=== PATIENT | female | born 1995 | race African-American/Black ===

== ENCOUNTER 2024-01-29 12:49 | Emergency (ER) | payer SELFPAY ==
--- OUTSIDE RECORDS SUMMARY | 2024-01-29 12:52 | XMS REPORT | Continuity of Care Document ---
Author Name Unknown Address [address] [facility] [address] [place] [address] [facility] thconnect Address [address] [facility] [address] [place] [address] Care Team Providers Care Executive Producer Promos Name Role Phone Michell Lange Primary Care Physician [phone] Roya Harrison Attending Clinician Unavailable FELISA LUTZ Attending Clinician Unavailable FELISA LUTZ Attending Clinician Unavailable Felisa Lutz MD Attending Clinician [phone] Michell Lange Attending Clinician [phone] MICHELL AKINS Attending Clinician Unavailable Doctor Unassigned, [place] Attending Clinician U navailable Roya Harrison Admitting Clinician Unavailable Payers Payer Name Policy Type Policy Number Effective Date Expirati on Date Source Problems Condition Name Condition Details Condition Category Status Onset Date Resolution Date Last Treatment Date Treating Clinician Comments Source No known active problems No known active problems Disease [facility] Allergies, Adverse Reactions, Alerts Allergy Name Allergy Type Status Severity Reaction(s) Onset Date Inactive Date Treating Clinician Comments Source No Known Allergie s DA Active U 09-10 00:00: 00 [facility] No Known Allergie s DA Active U 09-10 00:00: 00 [facility] NO KNOWN ALLERGIE S Drug Class Active [facility] Social History Social Habit Start Date Stop Date Quantity Comments Source ASSERTION 2019-12-20 00:00:00 [facility] Exposure to SARS-CoV-2 (event) Not sure [facility] Alcoholic beverage intake 2020-12-04 00:00:00 2020-12-04 00:00:00 Ex-drinker (finding) [facility] Alcohol Comment 2020-01-28 00:00:00 2020-01-28 00:00:00 not since , but socially before [facility] History of Social function 2020-01-28 00:00:00 2020-01-28 00:00:00 [facility] Tobacco use and exposure 2020-01-28 00:00:00 2020-01-28 00:00:00 Smokeless tobacco non-user [facility] Alcohol intake 2020-01-28 00:00:00 2020-01-28 00:00:00 Ex-drinker (finding) [facility] Sex assigned at 1995 00:00:00 1995 00:00:00 [facility] Smoking Status Start Date Stop Date Source Unknown if ever smoked [facility] Never smoked tobacco [facility] Medications Ordered Medication Name Filled Medication Name Start Date Stop Date Current Medication? Ordering Clinician Indication Dosage Frequency Signature (SIG) Comments Components Source proMETHazin e 12.5 mg tablet 2019-04 00:00: 00 Yes [id number] 12.5mg Take 1 tablet by mouth every 6 (six) hours as needed for Nausea and Vomiting (N/V) ( -) for up to 60 doses. [facility] Vital Signs Vital Name Observation Time Observation Value Comments S ource Body height 2020-01-28 19:07:00 180.3 cm [facility] Body weight 2020-01-28 19:07:00 82.373 kg [facility] BMI 2020-01-28 19:07:00 25.33 kg/m2 [facility] Systolic blood pressure 2020-01-28 19:07:00 116 mm[Hg] [place] [facility] Diastolic blood pressure 2020-01-28 19:07:00 75 mm[Hg] [facility] Heart rate 2020-01-28 19:07:00 81 /[facility] Body temperature 2020-01-28 19:07:00 37.17 Alexia [facility] Respiratory rate 2020-01-28 19:07:00 18 /min [facility] Procedures Procedure Date / Time Performed Performing Clinicia n Source [id number] 2020-09-10 00:00:00 [facility] [id number] 2020-09-10 00:00:00 [facility] [id number] 2020-09-10 00:00:00 [facility] [id number] 2020-09-10 00:00:00 [facility] GC & CHLAMYDIA AMPLIFIED ASSAY 2020-01-28 20:29:00 Michell Akins [facility] GLUCOSE 1 HOUR POST PRANDIAL 2020-01-28 20:15:00 Michell Akins [facility] CBC WITH DIFF 2020-01-28 20:15:00 [facility] S[facility] IGG 2020-01-28 20:15:00 Michell Akins [facility] HEPATITIS B SURFACE ANTIGEN 2020-01-28 20:15:00 Michell Akins [facility] HB ABO GROUPING 2020-01-28 20:15:00 [facility] HIV 1/2 AG-AB WITH REFLEX 2020-01-28 20:15:00 Michell Akins [facility] GALV ONLY - SYPHILIS IGG/IGM 2020-01-28 20:15:00 Michell Akins [facility] POCT TEST 2020-01-28 19:09:00 Michell Akins [facility] ASSIGNMENT OF BENEFITS 2020-01-28 18:35:23 Docto r Unassigned, [place] [facility] Encounters Start Date/Time End Date/Time Encounter Type Admission Type Attending Clinicians Care Facility Care Department Encounter ID Source 2020-09-09 11:09:32 Inpatient Roya Fracnisco [facility] [id number] [facility] 2024-01-15 00:00:00 2024-01-15 15:00:09 Telephone LutzCathleenen Heber [facility] [id number] [facility] 2020-09-10 01:12:00 2020-09-11 15:55:00 Inpatient Roya Duque [facility] OBPP [id number] [facility] 2020-02-20 00:00:00 2020-02-20 00:00:00 Telephone Michell Akins [facility] [id number] [facility] 2020-01-28 13:54:54 2020-01-28 15:24:36 Initial Visit Michell Akins [facility] [id number] [facility] 2020-01-28 13:30:00 2020-01-28 13:30:00 Outpatient R MICHELL AKINS [facility] [id number] [facility] 2020-01-28 00:00:00 2020-01-28 00:00:00 Orders Only Doctor Unassigned, [place] [facility] [id number] [facility] Results Test Description Test Time Test Comments Results Result Co mments Source AG HEPATITIS B [id number] 04:17:00* Test Item Value Reference Range Interpretation Comme nts AG HEPATITIS B SURFACE (test code = HBSAG) NONREACTIVE NONREACTIVE IS CONSENT FORM SIGNED FOR HIV TESTING? YAB HEPATITIS C [id number] 04:17:00* Test Item Value Reference Range Interpretation Comme nts AB HEPATITIS C (test code = HCVAB) NONREACTIVE NONREACTIVE SIGNAL TO CUTOFF (test code = CUTOFF) 0.04 <0.80 N IS CONSENT FORM SIGNED FOR HIV TESTING? YAB [id number] 04:17:00* Test Item Value Reference Range Interpretation Comme nts AB TREPONEMA (test code = TREPAB) NONREACTIVE NONREACTIVE IS CONSENT FORM SIGNED FOR HIV TESTING? YAB HIV 1 04:17:00* Test Item Value Reference Range Interpretation Comme nts AB HIV 1 2 (test code = OED90LK) NONREACTIVE NONREACTIVE Done by [employer] HIV Ag/Ab Combo Screen IS CONSENT FORM SIGNED FOR HIV TESTING? YAG HEPATITIS B [id number] 03:36:00* Test Item Value Reference Range Interpretation Comme nts AG HEPATITIS B SURFACE (test code = HBSAG) NONREACTIVE IS CONSENT FORM SIGNED FOR HIV TESTING? YAB HEPATITIS C [id number] 03:36:00* Test Item Value Reference Range Interpretation Comme nts AB HEPATITIS C (test code = HCVAB) NONREACTIVE NONREACTIVE SIGNAL TO CUTOFF (test code = CUTOFF) 0.04 <0.80 N IS CONSENT FORM SIGNED FOR HIV TESTING? RAMIROB [id number] 03:36:00* Test Item Value Reference Range Interpretation Comme nts AB TREPONEMA (test code = TREPAB) NONREACTIVE NONREACTIVE IS CONSENT FORM SIGNED FOR HIV TESTING? YAB HIV 1 03:36:00* Test Item Value Reference Range Interpretation Comme nts AB HIV 1 2 (test code = ZCW11HP) NONREACTIVE NONREACTIVE Done by [employer] HIV Ag/Ab Combo Screen IS CONSENT FORM SIGNED FOR HIV TESTING? YAG HEPATITIS B [id number] 03:05:00* Test Item Value Reference Range Interpretation Comme nts AG HEPATITIS B SURFACE (test code = HBSAG) NONREACTIVE IS CONSENT FORM SIGNED FOR HIV TESTING? YAB HEPATITIS C [id number] 03:05:00* Test Item Value Reference Range Interpretation Comme nts AB HEPATITIS C (test code = HCVAB) NONREACTIVE SIGNAL TO CUTOFF (test code = CUTOFF) <0.80 IS CONSENT FORM SIGNED FOR HIV TESTING? YAB [id number] 03:05:00* Test Item Value Reference Range Interpretation Comme nts AB TREPONEMA (test code = TREPAB) NONREACTIVE NONREACTIVE IS CONSENT FORM SIGNED FOR HIV TESTING? YAB HIV 1 03:05:00* Test Item Value Reference Range Interpretation Comme nts AB HIV 1 2 (test code = IAB15RN) NONREACTIVE IS CONSENT FORM SIGNED FOR HIV TESTING? YUR PROTEIN/CREATININE [id number] 02:44:00* Test Item Value Reference Range Interpretation Comme nts UR PROTEIN RANDOM (test code = PROTU) 30.4 mg/dL UR CREATININE RANDOM (test code = CREATU) 181.2 mg/dL PROTEIN/CREATININE RATIO (te st code = P/CRATIO) 167.7 mg/gcrea <200 URINALYSIS [id number] 02:36:00* Test Item Value Reference Range Interpretation Comme nts UA COLOR (test code = COLU) YELLOW YELLOW UA APPEARANCE (test code = APPU) Slightly-Cloudy CLEAR UA GLUCOSE DIPSTICK (test code = DGLUU) NEGATIVE NEG UA BILIRUBIN DIPSTICK (test code = BILU) NEGATIVE NEG UA KETONE DIPSTICK (test cod e = KETU) NEGATIVE NEG UA SPECIFIC GRAVITY (test code = SGU) 1.026 1.001-1.035 N UA BLOOD DIPSTICK (test code = SANDER) NEG NEG UA PH DIPSTICK (test code = JACKELIN) 6.0 5-9 UA PROTEIN DIPSTICK (test code = PROU) NEGATIVE NEG UA UROBILINIOGEN DIPSTICK (test code = URO) NEGATIVE mg/dL NEG UA NITRITE DIPSTICK (test code = FINN) NEG NEG UA LEUKOCYTE ESTERASE DIPSTICK (test code = LEUU) NEG NEG UA WBC (test code = WBCU) 0-2 #/hpf NONE SEEN UA RBC (test code = RBCU) 0-2 #/hpf NONE SEEN UA EPITHELIAL CELLS (test code = EPIU) FEW #/HPF RARE-FEW UA BACTERIA (test code = BACU) FEW /HPF RARE-FEW UA MUCUS (test code = MUCU) 1+ NONE SEEN URINE SAMPLE: CLEAN CATCHCOMPREHENSIVE METABOLIC [id number] 02:12:00* Test Item Value Reference Range Interpretation Comme nts SODIUM (test code = NA) 132 mEq/L 135-145 L POTASSIUM (test code = K) 4.1 mEq/L 3.5-5.0 N CHLORIDE (test code = CL) 99 mEq/L 100-115 L CARBON DIOXIDE (test code = CO2) 24 mEq/L 22-31 N ANION GAP (test code = GAP) 12.80 10-20 N GLUCOSE (test code = GLU) 94 mg/dL 65-110 N BLOOD UREA NITROGEN (test co de = BUN) 9 mg/dL 7-18 N GLOMERULAR FILTRATION RATE ( test code = GFR) 115 ml/min >60 N CREATININE (test code = CREAT) 0.7 mg/dL 0.5-1.0 N TOTAL PROTEIN (test code = PROT) 6.4 gm/dL 6.3-8.2 N ALBUMIN (test code = ALB) 2.9 gm/dL 3.4-4.8 L CALCIUM (test code = CA) 8.5 mg/dL 8.4-10.2 N BILIRUBIN TOTAL (test code = BILT) 0.2 mg/dL 0.2-1.0 N SGOT/AST (test code = AST) 21 units/L 15-37 N SGPT/ALT (test code = ALT) 16 units/L 12-78 N ALKALINE PHOSPHATASE TOTAL ( test code = ALKP) 133 units/L 46-116 H CBC W/AUTO [id number] 02:07:00* Test Item Value Reference Range Interpretation Comme nts WHITE BLOOD CELL (test code = WBC) 7.8 K/mm3 6.5-12.3 N RED BLOOD CELL (test code = RBC) 4.11 M/mm3 3.51-4.69 N HEMOGLOBIN (test code = HGB) 9.9 g/dL 10.1-13.8 L HEMATOCRIT (test code = HCT) 33.0 % 32.5-41.8 N MEAN CELL VOLUME (test code = MCV) 80.3 fL 84.6-96.6 L MEAN CELL HGB (test code = MCH) 24.1 pg 27.3-33.9 L MEAN CELL HGB CONCETRATION ( test code = MCHC) 30.0 gm/dL 32.0-34.2 L RED CELL DISTRIBUTION WIDTH (test code = RDW) 20.3 % 12.2-16.3 H PLATELET COUNT (test code = PLT) 156 K/mm3 134-363 N NEUTROPHIL % (test code = NT%) 65.1 % 57.9-77.3 N LYMPHOCYTE % (test code = LY%) 20.3 % 14.5-29.7 N MONOCYTE % (test code = MO%) 13.1 % 3.6-10.2 H EOSINOPHIL % (test code = EO%) 0.9 % 0.0-3.0 N BASOPHIL % (test code = BA%) 0.1 % 0.1-0.9 N NEUTROPHIL # (test code = NT#) 5.1 K/mm3 LYMPHOCYTE # (test code = LY#) 1.6 K/mm3 MONOCYTE # (test code = MO#) 1.0 K/mm3 EOSINOPHIL # (test code = EO#) 0.07 K/mm3 BASOPHIL # (test code = BA#) 0.0 K/mm3 RBC MORPHOLOGY REQUIRED (basil t code = RBCM) NORMAL NORMAL PLATELET MORPHOLOGY REQUIRED (test code = PLTMR) NORMAL NORMAL COVID 19 Asymptomatic IH [id number] 01:36:00* Test Item Value Reference Range Interpretation Comme nts COVID 19 Asymptomatic IH AG (test code = COVNONPUIAG) NEGATIVE NEGATIVE This test has be en authorized only for the detection ofproteins from SARS-CoV-2, not for any other viruses orpathogens. Negative results should be treated as presumptive andconfirmed with a molecular assay, if necessary for patientmanagement. Negative results do not rule out COVID-19 andshould not be used as the sole basis for treatment orpatient management decisions, including infection controldecisions. Negative results should be considered in thecontext of a patient's recent exposures, history and thepresence of clinical signs and symptoms consistent withCOVID-19. This test has not been FDA cleared or approved; the test hasbeen authorized by FDA under an Emergency Use Authorization(EUA) for use by laboratories certified under the CLIA thatmeet the requirements to perform moderate, high or waivedcomplexity tests. This test is authorized for use at thePoint of Care (POC), i.e., in patient care settingsoperating under a CLIA Certificate of Waiver, Certificate ofCompliance, or Certificate of Accreditation. This test is only authorized for the duration of thedeclaration that circumstances exist justifying theauthorization of emergency use of in vitro diagnostic testsfor detection and/or diagnosis of COVID-19 under Jsqqmfy435(b)(1) of the Act, 21 U.S.C. 360bbb-3(b)(1), unless theauthorization is terminated or revoked sooner. RUBELLA SCREEN (SEBASTIAN) [id number] 17:11:00* Test Item Value Reference Range Interpretation Comme nts Rubella screen IgG (test code = 7821230339) Positive Negative KYLE (test code = KYLE) Positive - Indicat es the patient was exposed to Rubella through infection or vaccination.Negative - Indicates the patient could be susceptible to Rubella infection.Equivocal - A second specimen should be sent. [facility] CHLAMYDIA AMPLIFIED [id number] 16:55:00* Test Item Value Reference Range Interpretation Comme nts C. trachomatis Nucleic Acid (test code = 64340-5) Negative Negative N. gonorrhoeae Nucleic Acid (test code = 22417-1) Negative Negative KYLE (test code = KYLE) Reliable results a re dependent on adequate specimen collection. ? A positive result obtained from a patient after therapeutic treatment cannot be interpreted as indicating the presence of viable organisms. ?For patients on whom a false positive result may have adverse psychosocial impact, retesting is advised. Indeterminate: Unable to generate a valid test result on this specimen. ?Please submit a new specimen for repeat testing if clinically indicated. Chlamydia trachomatis/Neisseria gonorrhoeae nucleic acid amplification testing (NAAT) has not been validated for medico-legal specimens (sexual abuse in filiberto-pubertal and pre-pubertal children, sexual assault, and legal cases). ?Culture for Chlamydia trachomatis and/or Neisseria gonorrhoeae from clinically appropriate sites is the method of choice in these cases. ? Results from this testing should be interpreted in conjunction with other laboratory and clinical data available to the clinician.For females in general, a urine specimen is a second-line option because it is considered less sensitive than a cervical swab for Chlamydia trachomatis and/or Neisseria gonorrhoeae NAAT. Lab Interpretation (test code = 73433-3) Normal [facility] - SYPHILIS [id number] 16:54:00* Test Item Value Reference Range Interpretation Comme nts Syphilis IgG/IgM (test code = 36437-7) Non-reactive Non-reactive KYLE (test code = KYLE) Non-reactive - No serologic evidence of T. pallidum infection. Cannot exclude incubating or early syphilis. Submit a second specimen in 2-4 weeks if syphilis is clinically suspected. Equivocal - Further testing to follow. Reactive - Further testing to follow. Lab Interpretation (test code = 51405-8) Normal [facility] AG-AB WITH [id number] 06:59:00* Test Item Value Reference Range Interpretation Comme nts HIV Semi-quantitative (test code = 93767-6) Negative Negative KYLE (test code = KYLE) Non-reactive for HIV-1 antigen and HIV-1/HIV-2 antibodies. ?No laboratory evidence of HIV infection. ?Repeat in 2-4 weeks if acute HIV infection is suspected. [facility] CenterPRENATAL WORKUP, BLOOD [id number] 04:49:55 * Test Item Value Reference Range Interpretation Comme nts ABO & RH (test code = 20) B POSITIVE Performed at [facility] Laboratory Services - [facility] Blood [address] Free: [phone] No. [id number] IAT (test code = 1185) Negative Performed at [facility] Laboratory Services [facility] Blood [address] Free: [phone] No. [id number] [facility] CenterHEPATITIS B SURFACE [id number] 04:49:00 * Test Item Value Reference Range Interpretation Comme nts HBsAg Semi-Quantitative (basil t code = 5195-3) Negative Negative [facility] CenterGlucose 1 Hour Post [id number] 04:15:00* Test Item Value Reference Range Interpretation Comme nts GLUC 1 HR (test code = 0738861376) 122 mg/dL 120-170 Lab Interpretation (test cod e = 22882-7) Normal [facility] WITH [id number] 03:42:00* Test Item Value Reference Range Interpretation Comme nts WBC (test code = 6690-2) See_Comment [Automated messa ge] The system which generated this result transmitted reference range: 4.30 - 11.10 10*3/?L. The reference range was not used to interpret this result as normal/abnormal. RBC (test code = 789-8) See_Comment [Automated Picasso[employer]coma ge] The system which generated this result transmitted reference range: 3.93 - 5.25 10*6/?L. The reference range was not used to interpret this result as normal/abnormal. HGB (test code = 718-7) 11.8 g/dL 11.6-15 HCT (test code = 4544-3) 38.2 % 35.7-45.2 MCV (test code = 787-2) 80.1 fL 80.6-95.5 L MCH (test code = 785-6) 24.7 pg 25.9-32.8 L MCHC (test code = 786-4) 30.9 g/dL 31.6-35.1 L RDW-SD (test code = 18478-9) 54.7 fL 39-49.9 H RDW-CV (test code = 788-0) 18.8 % 12-15.5 H PLT (test code = 777-3) See_Comment [Automated [employer]coma ge] The system which generated this result transmitted reference range: 166 - 358 10*3/?L. The reference range was not used to interpret this result as normal/abnormal. MPV (test code = 86388-5) 11.1 fL 9.5-12.9 NRBC/100 WBC (test code = 1463618229) See_Comment [Automated [employer] ssage] The system which generated this result transmitted reference range: 0.0 - 10.0 /100 WBCs. The reference range was not used to interpret this result as normal/abnormal. NRBC x10^3 (test code = 0606924396) <0.01 See_Comment [Automated [employer]coma ge] The system which generated this result transmitted reference range: 10*3/?L. The reference range was not used to interpret this result as normal/abnormal. GRAN MAT (NEUT) % (test code = 770-8) 69.1 % IMM GRAN % (test code = 7967918119) 0.10 % LYMPH % (test code = 736-9) 21.3 % MONO % (test code = 5905-5) 8.8 % EOS % (test code = 713-8) 0.6 % BASO % (test code = 706-2) 0.1 % GRAN MAT x10^3(ANC) (test code = 7393718076) 4.93 10*3/uL 1.88-7.09 IMM GRAN x10^3 (test code = 7748209410) <0.03 0-0.06 LYMPH x10^3 (test code = 731-0) 1.52 10*3/uL 1.32-3.29 MONO x10^3 (test code = 742-7) 0.63 10*3/uL 0.33-0.92 EOS x10^3 (test code = 711-2) 0.04 10*3/uL 0.03-0.39 BASO x10^3 (test code = 704-7) <0.03 0.01-0.07 Lab Interpretation (test code = 49181-0) Abnormal [facility] CenterPOCT [id number] 19:09:00* Test Item Value Reference Range Interpretation Comme nts POCT PREG (test code = 1605) Positive On board controls acceptable with C Line (test code = 3574) Yes POCT PREG LOT # (test code = 3575) POCT PREG TEST DATE ( test code = 3576) Lab Interpretation (test cod e = 59934-1) Normal [facility] Notes Date/Time Note Provider Source 2024-01-15 15:00:18 Noted Brittney Kincaid RN 01/15/2024 3:00 PM Brittney Kincaid RN [facility] - [facility] 2024-01-15 14:41:49 Disregard, pt cancelled the appt. LMP 11/28, positive home test, pt have not seen anyone for this , sent my chart activation code. Appt Jan 17/ MD Navin. Itzel Santos [facility] 2020-09-11 11:58:00 [facility] OB Disch REPORT#:[id number] REPORT STATUS: Signed DATE:09/11/20 TIME: 1158 PATIENT: TASNEEM HOPPER UNIT #: [id number] ROOM/BED: [address] : [birth year] AGE: 25 SEX: F ATTEND: Roya Harrison MD ADM AUTHOR: Roya Harrison MD * ALL edits or amendments must be made on the electronic/computer document * Discharge Summary General Problem List/A P: 1. Gestational hypertension Assessment: nml progress, acute blood loss anemia (, asx) Hospital course: induction of labor, spontaneous vag delivery, epidural anesthesia, nml postop/postpart care Discharge condition: stable Discharge to: Home/Self Care Discharge diagnosis: full-term uncomp delivery, perineal laceration (3rd degree) , gestational HTN, anemia (, acute blood loss) Baby A: Vaginal delivery: operative vag del vacuum status: live born Gender: male 1 minute: 8 5 minutes: 9 Plan: routine care, circumcision today, discharge today (anticipated) , start iron Vaginal packing at delivery: No Discharge Instructions Diet: Regular Activity: No [place] for 6 Wks Additional discharge routines: Attending Follow-Up Discharge meds: Stop taking the following medications: FERROUS SULFATE (FEOSOL) 325 MG TAB 325 MILLIGRAM ORAL DAILY. Continue taking these medications: PNV WITH FE FUMARATE/FA () 1 EACH TAB 1 TABLET ORAL DAILY. FERROUS SULFATE (FEOSOL) 325 MG TAB 1 TABLET ORAL TWICE DAILY. Qty = 60 DOCUSATE SODIUM (COLACE) 100 MG CAP 1 TABLET ORAL TWICE DAILY. as needed for CONSTIPATION Qty = 100 Start taking the following new medications: IBUPROFEN (MOTRIN) 800 MG TAB 800 MILLIGRAM ORAL THREE TIMES DAILY NEEDED. as needed for ABDOMINAL CRAMPS Qty = 60 Refills = 1 Prescriptions: e-prescribe Add'l Follow-up Appointments Attending Physician: Attending Physician: Roya Harrison MD Attending physician follow up timeframe: In 4-5 weeks at 1200 RPT #:[id number] END OF REPORT [facility] 2020-09-11 11:49:00 [facility] ([facility]) OB Postpart Progr Note REPORT#:[id number] REPORT STATUS: Signed DATE:09/11/20 TIME: 1149 PATIENT: TASNEEM HOPPER UNIT #: [id number] ROOM/BED: [address] : [birth year] AGE: 25 SEX: F ATTEND: Roya Harrison MD ADM AUTHOR: Roya Harrison MD * ALL edits or amendments must be made on the electronic/computer document * Subjective Subjective Status/Day: post (#1 s/p ) Patient reports: Patient reports: Yes no complaints, Yes normal lochia, Yes pain management effective, Yes tolerating po well, Yes voiding well Objective Nursing Documentation Review Nursing Data: The data set between the solid lines has been imported from nursing documentation. Any exceptions have been noted below under Provider comments. Feeding preference: Post hemorrhage risk score: Low Risk for Hemorrhage. Provider comments on imported nursing data: [] General VS: Vital Signs: Date Time Temp Pulse Resp B/P B/P Pulse O2 O2 Flow FiO2 Mean Ox Delivery Rate 09/11 0848 97.8 88 20 123/81 06/05 0011 98.8 100 18 126/79 06/04 1725 98.6 101 132/86 06/04 1639 99.0 06/04 1639 108 135/80 06/04 1608 93.0 06/04 1608 103 118/79 06/04 1554 101.0 06/04 1554 106 128/82 06/04 1524 88.0 06/04 1524 101 132/64 06/04 1509 91.0 06/04 1509 96 125/70 06/04 1453 103.0 06/04 1453 116 140/78 06/04 1446 97.0 06/04 1446 111 136/71 06/04 1439 100.0 06/04 1439 127 158/70 06/04 1424 83.0 06/04 1424 122 112/67 06/04 1409 96.0 06/04 1409 96 131/72 06/04 1353 94.0 06/04 1353 93 131/69 06/04 1338 96.0 06/04 1338 94 134/72 06/04 1324 100.0 06/04 1324 111 138/75 06/04 1309 93.0 06/04 1309 117 20 148/65 06/04 1239 102.0 06/04 1239 95 136/81 06/04 1225 91.0 06/04 1225 102 156/63 06/04 1209 107.0 06/04 1209 100 138/86 06/04 1153 75.0 06/04 1153 80 108/56 PATIENT WEIGHT: Weight (lb): 217 Weight (oz): Weight (kg): 98.43 Physical Exam Cardiac: normal sinus rhythm, no clinically sig murmur Lungs: clear to auscultation, no rales Neuro: Exam: alert, oriented x3 Abdomen: soft, no abnormal tenderness, no guarding Uterus: firm, involution appropriate, non-tender Fundus: firm Lower extremities: Edema: trace Result Findings/Data: Laboratory Tests: 09/11 814 Hematology Hgb (10.1 - 13.8 g/dL) 7.5 L Hct (32.5 - 41.8 %) 25.2 L Diagnosis, Assessment Plan Diagnosis, Assessment Plan Problem List/A P: 1. Gestational hypertension Assessment: nml progress, acute blood loss anemia (, asx) Plan: routine care, circumcision today, discharge today (anticipated) , start iron at 1151 RPT #:[id number] END OF REPORT [facility] 2020-09-10 14:33:00 [facility] ([facility]) OB Delivery Note REPORT#:[id number] REPORT STATUS: Signed DATE:09/10/20 TIME: 1433 PATIENT: TASNEEM HOPPER UNIT #: [id number] ROOM/BED: [address] : 96 AGE: 25 SEX: F ATTEND: Roya Harrison MD ADM AUTHOR: Roya Harrison MD * ALL edits or amendments must be made on the electronic/computer document * OB Delivery Pre-delivery GBS status: GBS status: negative Admission EGA: Weeks: 39 Days: 6 Baby A Information Baby A information Delivery date: 09/10/20 Delivery time: 1310 status: live born Wt of baby (lbs/oz): 8/9 Gender: male 1 minute: 8 5 minutes: 9 Presentation: vertex ABG details Baby A Cord blood gases: not collected Nuchal cord Baby A Nuchal cord: yes (tight,deliv.through), double Vaginal Delivery Vaginal delivery: Labor: spontaneous Vaginal delivery: operative vag del vacuum Amniotic fluid: clear Anesthesia type: epidural anesthesia Laceration repair: yes, 2-0 suture Placenta: spontaneous, expressed, intact Post delivery meds used: oxytocin Count: correct Vaginal packing: No Mother's condition: mother stable Infant's condition: stable in room Lacerations: Perineal laceration(s): 3rd Degree w/anal sphinct High vaginal laceration: yes (right vaginal sidewall) Extraction details OVD performed: yes OVD type: Vacuum asst vag delivery Indications: prolonged second stage, indications Pt counseling: indications discussed, risks discussed, questions answered, patient consent obtained Extraction assessment: cervix completely dilated, nursery anesth notified, mat-fet size appr for trace, bladder empty Degree of rotation: none station: outlet (5+) Position of head: OA total traction time (minutes): 10 # of pulls: 4 # of popoffs: 1 Vacuum type: Kiwi Vacuum detail: not > recommended range, always in recommend range, press. reduced betw UC's, adv. in station w/ea pull, appropriate cup placement, matern tiss excl from cup Extraction outcome: extraction successful Blood Loss/Details Blood loss at delivery: 975 mL at 1438 RPT #:[id number] END OF REPORT [facility] 2020-09-10 11:08:00 [facility] ([facility]) OB Admission / H P REPORT#:[id number] REPORT STATUS: Signed DATE:09/10/20 TIME: 1108 PATIENT: TASNEEM HOPPER UNIT #: [id number] ROOM/BED: [address] : 96 AGE: 25 SEX: F ATTEND: Roya Harrison MD ADM AUTHOR: Roya Harrison MD * ALL edits or amendments must be made on the electronic/computer document * OB History Chief complaint: uterine contractions, elevated blood pressure HPI: 25 yo G 2 P0 at 39 6/7 weeks IUP presents with c/o CTX. pt with elev BPs noted on arrival 140s/90s. no VB, no LOF +FM. no headaches, no visual changes, no N/V. PNC with Dr. Harrison c/b anemia Current : Admission EGA (weeks) 39 Admission EGA (days) 6 Conditions of : anemia Past History Allergies: Coded Allergies: No Known Allergies (09/10/20) Review of Systems All systems rev neg: except as marked Objective General VS: Last Documented: Result Date Time B/P Mean 91.0 09/10 1055 B/P 125/68 09/10 1055 Pulse 100 / 1055 Temp 98.4 09/10 0909 Resp 18 09/10 0909 Vital Signs Date Temp Pulse Resp B/P B/P Mean Pulse Ox FiO2 09/10 97.5-98.4 73-100 18 122-151/63-90 85.0-114.0 PATIENT WEIGHT: Weight (lb): 217 Weight (oz): Weight (kg): 98.43 Physical Exam HEENT: normocephalic w/o injury, pupils equal Cardiac: regular rate and rhythm, no clinically sig murmur Lungs: clear to auscultation Neuro: Exam: alert, oriented x3 DTR's (lower extr): normal 1-2+ Abdomen: gravid, soft, no abnormal tenderness Musculoskeletal: normal inspection, painless range of motion Pelvic exam: Pelvis clinically adequate: yes, inlet appears appropriate, pubic bone config appropr, no midpelvic contraction Cervical/ exam: Dilatation (cm): 0 - closed Effacement (%): 20 Est wt (gms): 3200 station: - 3 presentation: cephalic Membranes: Membranes: SROM Amniotic fluid: clear Lower extremities: Edema: 1+ pitting Baby A: Baby A FHR category: category 1 Result Findings/Data: Laboratory Tests: 09/10 09/10 0220 0137 Chemistry Sodium (135 - 145 mEq/L) 132 L Potassium (3.5 - 5.0 mEq/L) 4.1 Chloride (100 - 115 mEq/L) 99 L Carbon Dioxide (22 - 31 mEq/L) 24 Anion Gap (10 - 20) 12.80 BUN (7 - 18 mg/dL) 9 Creatinine (0.5 - 1.0 mg/dL) 0.7 Glomerular Filtr Rate (>60 ml/min) 115 Glucose (65 - 110 mg/dL) 94 Calcium (8.4 - 10.2 mg/dL) 8.5 Total Bilirubin (0.2 - 1.0 mg/dL) 0.2 AST (15 - 37 units/L) 21 ALT (12 - 78 units/L) 16 Total Alk Phosphatase (46 - 116 units/L) 133 H Total Protein (6.3 - 8.2 gm/dL) 6.4 Albumin (3.4 - 4.8 gm/dL) 2.9 L Hematology WBC (6.5 - 12.3 K/mm3) 7.8 RBC (3.51 - 4.69 M/mm3) 4.11 Hgb (10.1 - 13.8 g/dL) 9.9 L Hct (32.5 - 41.8 %) 33.0 MCV (84.6 - 96.6 fL) 80.3 L MCH (27.3 - 33.9 pg) 24.1 L MCHC (32.0 - 34.2 gm/dL) 30.0 L RDW (12.2 - 16.3 %) 20.3 H Plt Count (134 - 363 K/mm3) 156 Neut % (Auto) (57.9 - 77.3 %) 65.1 Lymph % (Auto) (14.5 - 29.7 %) 20.3 [place] % (Auto) (3.6 - 10.2 %) 13.1 H Eos % (Auto) (0.0 - 3.0 %) 0.9 Baso % (Auto) (0.1 - 0.9 %) 0.1 Neut # (Auto) (K/mm3) 5.1 Lymph # (Auto) (K/mm3) 1.6 [place] # (Auto) (K/mm3) 1.0 Eos # (Auto) (K/mm3) 0.07 Baso # (Auto) (K/mm3) 0.0 Serology Treponema pallidum Ab (NONREACTIVE) NONREACTIVE Hep Bs Antigen (NONREACTIVE) NONREACTIVE Hepatitis C Antibody (NONREACTIVE) NONREACTIVE Hep C Ab Signal/Cutoff (<0.80) 0.04 HIV 1 2 Antibody (NONREACTIVE) NONREACTIVE Urines Urine Color (YELLOW) YELLOW Urine Appearance (CLEAR) Slightly-Cloudy Urine pH (5 - 9) 6.0 Ur Specific [place] (1.001 - 1.035) 1.026 Urine Protein (NEG) NEGATIVE Urine Glucose (UA) (NEG) NEGATIVE Urine Ketones (NEG) NEGATIVE Urine Blood (NEG) NEG Urine Nitrite (NEG) NEG Urine Bilirubin (NEG) NEGATIVE Urine Urobilinogen (NEG mg/dL) NEGATIVE Ur Leukocyte Esterase (NEG) NEG Urine RBC (NONE SEEN #/hpf) 0-2 Urine WBC (NONE SEEN #/hpf) 0-2 Ur Epithelial Cells (RARE - FEW #/HPF) FEW Urine Bacteria (RARE - FEW /HPF) FEW Urine Mucus (NONE SEEN) 1+ 06/04 06/04 0113 0112 Serology SARS-CoV-2 Ag (Rapid) (NEGATIVE) NEGATIVE Urines Ur Random Creatinine (mg/dL) 181.2 U Random Total Protein (mg/dL) 30.4 Protein/Creatinin Ratio (<200 mg/gcrea) 167.7 Diagnosis, Assessment Plan Diagnosis, Assessment Plan Problem List/A P: 1. Gestational hypertension Free Text A P: labs normal except for slightly elev creatinine,monitor for s/sx of preeclampsia. magnesium sulfate prn for seizure prophylaxis Assessment/Impression: hypertension-gestational Plan: admit to inpatient, delivery, GBS neg at 1138 RPT #:[id number] END OF REPORT [facility]
--- NOTE | 2024-01-29 14:12 | RAD REPORT ---
EXAM: Transvaginal OB HISTORY: Abd cramping, ;Vaginal bleeding COMPARISON: None TECHNIQUE: Multiple grayscale and color Doppler images were obtained in a pelvic ultrasound. Spectra l analysis of the Doppler waveforms of the ovaries were performed. FINDINGS: UTERUS: There is an intrauterine gestational sac. This contains a yolk sac and pole. [place]-rump length: 0.9 cm which estimates gestational age at 7 weeks 3 day. A heart rate is detected at 129 bpm. Small subchorionic hemorrhage. A small amount of free fluid is seen in the pelvis. RIGHT OVARY: Normal flow without focal mass. LEFT OVARY: Normal flow without focal mass. IMPRESSION: Single live intrauterine with estimated age of 7 weeks 3 day. Small subchorioni c hemorrhage.
[2024-01-29 14:31] LABS: Absolute Lymphocytes (CBC) 1.6 K/uL (0.7-4.9); Absolute Monocytes 0.8 K/uL (0.1-1.3); Absolute Neutrophil 5.3 K/uL (1.8-8.0); Basophils % 0.4 % (0-1.3); Eosinophils % 0.5 % (0-4.4); Hematocrit 34.4 % (36.0-45.0); Hemoglobin 11.1 g/dL (12.0-15.0); Lymphocytes % 20.3 % (15.3-44.8); MCH 26.6 pg (27.0-35.0); MCHC 32.1 g/dL (32.0-36.0); MCV 82.9 fL (80-100); MPV 8.4 fL (7.6-11.3); Monocytes % 10.4 % (3.3-12.3); Neutrophils % 68.4 % (41.7-73.7); Platelets 246 thou/uL (152-406); RBC Red Blood Cell Count 4.15 M/uL (3.86-4.86); Red Cell Distribution Width 15.5 % (12.1-15.2)
[2024-01-29 15:07] LABS: Anion Gap 9.7 mEq/L (5.0-15.0); Potassium 3.7 mEq/L (3.5-5.1)
[2024-01-29 17:06] LABS: Specific Gravity 1.023 (1.005-1.030)
[2024-01-29 17:08] LABS: Specific Gravity 1.024 (1.005-1.030); Urine Bacteria <20 /HPF (<20); Urine Bilirubin NEGATIVE (Negative); Urine Blood 2+ (Negative); Urine Clarity Extremely Turbid (Clear); Urine Color Yellow (Yellow); Urine Crystals Unidentified Few /HPF (None Seen); Urine Culture Reflex Order REFLEXED; Urine Glucose NEGATIVE (Negative); Urine Ketones 2+ (Negative); Urine Microscopic Reflex YN ORDER UMIC; Urine Mucus 2+ /HPF (None Seen); Urine Nitrite NEGATIVE (Negative); Urine Protein TRACE (Negative); Urine Urobilinogen Normal (Normal); Urine WBC >50 /HPF (<5); Urine pH 6.5 (5.0-7.0)
--- NOTE | 2024-01-29 17:19 | ER ---
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 Coronavirus screen: At this time, the client does not indicate any symptoms associated with coronavirus-19. Ebola Screen: No symptoms or risks identified at this time. Initial Sepsis Screen: Does the patient meet any 2 criteria? No. Patient's initial sepsis screen is negative. Does the patient have a suspected source of infection? No. Patient's initial sepsis screen is negative. Risk Assessment: Do you want to hurt yourself or someone else? Patient reports no desire to harm self or others. Onset of symptoms was January 28, 2024. 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 - Infectious Disease History:: Denies. - Social history:: Smoking status: Patient denies any tobacco usage or history of. Screenin:23 [facility] ED Fall Risk Assessment (Adult) History of falling in the last 3 months, ap3 including since admission No falls in past 3 months (0 pts) Confusion or Disorientation No (0 pts) Intoxicated or Sedated No (0 pts) Impaired Gait No (0 pts) Mobility Assist Device Used No (0 pt) Altered Elimination No (0 pt) Score/Fall Risk Level 0 - 2 = Low Risk Oriented to surroundings, Maintained a safe environment, Educated pt \T\ family on fall prevention, incl call for assistance when getting out of bed, Assessed \T\ reinforced patient's understanding of fall precautions, Hourly rounding (assess needs \T\ fall precautionary measures) done, Used ambulatory aids as needed (educated on \T\ assisted with), Used gait belt as appropriate. Abuse screen: Denies threats or abuse. Nutritional screening: No deficits noted. Tuberculosis screening: No symptoms or risk factors identified. Assessment: 14:23 General: Appears in no apparent distress. Behavior is calm, cooperative, appropriate ap3 for age. Pain: Denies pain. Neuro: Level of Consciousness is awake, alert, obeys commands, Oriented to person, place, time, situation, Appropriate for age. Cardiovascular: Patient's skin is warm and dry. Respiratory: Airway is patent Respiratory effort is even, unlabored, Respiratory pattern is regular, symmetrical. : Reports vaginal bleeding that is. 15:21 Reassessment: Patient appears in no apparent distress at this time. Patient and/or jb4 family updated on plan of care and expected duration. Pain level reassessed. Patient is alert, oriented x 3, equal unlabored respirations, skin warm/dry/pink. 16:51 Reassessment: Patient appears in no apparent distress at this time. Patient and/or jb4 family updated on plan of care and expected duration. Pain level reassessed. Patient is alert, oriented x 3, equal unlabored respirations, skin warm/dry/pink. 17:37 Reassessment: Patient appears in no apparent distress at this time. Patient and/or jb4 family updated on plan of care and expected duration. Pain level reassessed. Patient is alert, oriented x 3, equal unlabored respirations, skin warm/dry/pink. Vital Signs: 13:00 BP 113 / 79; Pulse 104; Resp 16; Temp 97.9(TE); Pulse Ox 100% on R/A; Weight 74.84 kg; hb Height 5 ft. 11 in. ; Pain 10/10; 15:21 BP 108 / 74; Pulse 79; Resp 16; Pulse Ox 98% on R/A; jb4 17:37 BP 116 / 90; Pulse 84; Resp 16; Pulse Ox 100% ; jb4 13:00 Body Mass Index 23.01 (74.84 kg, 180.34 cm) hb 13:00 Pain Scale: Adult hb ED Course: 12:52 Patient arrived in ED. mg5 12:56 Annmarie Matamoros FNP-C is [facility]. kb 12:56 Kane Newman MD is Attending Physician. kb 13:02 Triage completed. hb 13:02 Arm band placed on. hb 14:03 US Transvaginal Ob In Process Unspecified. EDMS 14:23 Cassandra Pollock, RN is Primary Nurse. ap3 14:24 Patient has correct armband on for positive identification. Bed in low position. Call ap3 light in reach. Side rails up X 1. Pulse ox on. NIBP on. 14:24 Initial lab(s) drawn, by me, sent to lab. Inserted saline lock: 24 gauge in right hand, ap3 using aseptic technique. Blood collected. Flushed with 10 mL NS. 17:37 Provided Education on: discharge instructions.. jb4 17:37 No provider procedures requiring assistance completed. IV discontinued, intact, jb4 bleeding controlled, No redness/swelling at site. Pressure dressing applied. Administered Medications: 17:37 Drug: Macrobid PO 100 mg PO once; administer with food Route: PO; jb4 17:37 Follow up: Response: No adverse reaction; Marked relief of symptoms jb4 17:38 Follow up: Response: Medication administered at discharge. jb4 Medication: 17:37 VIS not applicable for this client. jb4 Outcome: 17:18 Discharge ordered by MD. kb 17:37 Discharged to home ambulatory, jb4 17:37 Condition: stable 17:37 Discharge instructions given to patient, Instructed on discharge instructions, follow up and referral plans. medication usage, Demonstrated understanding of instructions, follow-up care, wound care, Prescriptions given X 1, 17:38 Patient left the ED. jb4 Signatures: Dispatcher [employer] EDWV Annmarie Matamoros, GEOTHERMAL POWERPLANT MECHANIC-Heather MENDEZP-Calista Haro, RN RN Rohit Guerra RN RN jb4 Cassandra Pollock, RN RN [email or web address] Adalgisa Jenkins mg5
--- NOTE | 2024-01-29 17:19 | EDPHYS ---
Physician Documentation [facility] Name: Jose Del Toro Age: 28 yrs Sex: Female : 1995 Arrival Date: 01/29/2024 Time: 12:49 Bed 11 Private MD: ED Physician Kane Newman HPI: 01/28 12:58 This 28 yrs old Black Female presents to ER via Unassigned with complaints of Vaginal kb Bleeding. 12:58 Pt is a 28 year old female who presents for lower abd cramping that started last night kb and vaginal bleeding that started this morning. States bleeding resolved at this time. LMP 11/2023. A0. Cramping resolved at this time as well. . 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 - Infectious Disease History:: Denies. - Social history:: Smoking status: Patient denies any tobacco usage or history of. ROS: 12:58 Constitutional: As per HPI kb Exam: 12:58 Constitutional: This is a well developed, well nourished patient who is awake, alert, kb and in no acute distress. Head/Face: Normocephalic, atraumatic. ENT: Moist Mucous membranes Cardiovascular: Regular rate Respiratory: Respirations even and unlabored. No increased work of breathing. Talking in full sentences Abdomen/GI: Soft, non-tender. No distention Skin: Warm, dry with normal turgor. Normal color. MS/ Extremity: Pulses equal, no cyanosis. Neurovascular intact. Full, normal range of motion. Neuro: Awake and alert, GCS 15, oriented to person, place, time, and situation. Vital Signs: 13:00 BP 113 / 79; Pulse 104; Resp 16; Temp 97.9(TE); Pulse Ox 100% on R/A; Weight 74.84 kg; hb Height 5 ft. 11 in. ; Pain 10/10; 15:21 BP 108 / 74; Pulse 79; Resp 16; Pulse Ox 98% on R/A; jb4 17:37 BP 116 / 90; Pulse 84; Resp 16; Pulse Ox 100% ; jb4 13:00 Body Mass Index 23.01 (74.84 kg, 180.34 cm) hb 13:00 Pain Scale: Adult hb MDM: 12:56 Medical Screening Exam initiated kb 12:59 Data reviewed: vital signs, nurses notes. kb 17:16 Differential diagnosis: threatened Ab, nonspecific abdominal pain, urinary tract kb infection. Counseling: I had a detailed discussion with the patient and/or guardian regarding the historical points, exam findings, and any diagnostic results supporting the discharge/admit diagnosis, lab results, radiology results, the need for outpatient follow up, an OB/Gyne specialist, to return to the emergency department if symptoms worsen or persist or if there are any questions or concerns that arise at home. 01/28 12:59 Order name: Abo/rh Typing; Complete Time: 16:03 kb 01/28 12:59 Order name: Basic Metabolic Panel; Complete Time: 16:03 kb 01/28 12:59 Order name: CBC with Diff; Complete Time: 14:35 kb 01/28 12:59 Order name: Test, Urine; Complete Time: 17:15 kb 01/28 12:59 Order name: Quantitative Hcg; Complete Time: 16:03 kb 01/28 12:59 Order name: Urinalysis w/ reflexes; Complete Time: 17:15 kb 01/28 17:15 Order name: Urine Culture EDMS 01/28 12:59 Order name: US Transvaginal Ob; Complete Time: 14:18 kb 01/28 12:59 Order name: IV Saline Lock; Complete Time: 14:25 kb 01/28 12:59 Order name: Labs collected and sent; Complete Time: 14:25 kb 01/28 12:59 Order name: NPO; Complete Time: 14:25 kb 01/28 14:36 Order name: Labs - recollect needed: recollect abo\E\rh no charge; Complete Time: 15:17 bd Administered Medications: 17:37 Drug: Macrobid PO 100 mg PO once; administer with food Route: PO; jb4 17:37 Follow up: Response: No adverse reaction; Marked relief of symptoms jb4 17:38 Follow up: Response: Medication administered at discharge. jb4 Disposition: 19:58 Co-signature as Attending Physician, Kane Newman MD I reviewed the patient's care rn provided by the Advanced Practice Provider and agree with the diagnosis and treatment plan. Disposition Summary: 01/29/24 17:18 Discharge Ordered Notes: Location: Home kb Condition: Stable kb Diagnosis - Threatened kb - UTI/ Urinary tract infection, site not specified kb Followup: kb - With: Emergency Department - When: As needed - Reason: Worsening of condition Followup: kb - With: Private Physician - When: 2 - 3 days - Reason: Recheck today's complaints, Continuance of care, Re-evaluation by your physician Discharge Instructions: - Discharge Summary Sheet kb - Urinary Tract Infection, Adult, [id number] kb - Subchorionic Hematoma kb - Threatened Miscarriage, Clvr-se-Caxi kb - Vaginal Bleeding During , First Trimester, [id number] kb Forms: - Medication Reconciliation Form kb - Antibiotic Education kb - Prescription Opioid Use kb - Patient Portal Instructions kb - Leadership Thank You Letter kb Prescriptions: - Macrobid 100 mg Oral Capsule - take 1 capsule ORAL route every 12 hours for 10 days; 20 capsule; Refills: 0, kb Product Selection Permitted Signatures: Dispatcher [employer] EDAnnmarie Redmond, SEARCH MARKETING SPECIALIST-C SEARCH MARKETING SPECIALIST-Ckb Sammi Cueto Roman, MD MD rn Baxter, Heather, RN Rohit Rivera, RN RN jb4
[2024-01-29] MEDS ORDERED: NITROFURAN MACRO 100 MG CAP PO ONE (17:23)
[2024-01-29 20:41] VITALS: TEMP 97.9
[2024-01-29 20:53] VITALS: BP 116/90; O2SAT 100
== END 2024-01-29 17:38 | disposition home or self-care (01) ==
LOC: ER 12:49
DX: O20.0 Threatened abortion (principal); O23.41 Unspecified infection of urinary tract in pregnancy, first trimester; N39.0 Urinary tract infection, site not specified; Z3A.01 Less than 8 weeks gestation of pregnancy
CPT/HCPCS: 36415; 76817; 80048; 81001; 81025; 84702; 85025; 86900; 86901; 87077; 87086; 87088; 87186; 99284